=== PATIENT | female | born 2000 | race Caucasian/White ===

== ENCOUNTER 2024-10-14 16:03 | Emergency (ER) | payer OTHER, SELFPAY ==
[2024-10-14 16:06] VITALS: BP 141/85
[2024-10-14 16:24] LABS: % Basophils 0.3 % (0-2); % Eosinophils 0.4 % (0-6); % Immature Granulocytes 0.4 % (0-0.5); % Lymphocytes 5.7 % (20.5-51.1); % Neutrophils 87.2 % (42.2-75.2); Absolute Basophils 0.1 10^3/uL (0-0.2); Absolute Eosinophils 0.1 10^3/uL (0-0.7); Absolute Immature Granulocytes 0.1 10^3/uL (0-0.05); Absolute Lymphocytes 1.1 10^3/uL (1.2-3.4); Absolute Monocytes 1.2 10^3/uL (0.1-0.6); Absolute Neutrophils 17.1 10^3/uL (1.4-6.5); Hematocrit 40.9 % (37.0-47.0); Hemoglobin 13.9 g/dL (12.0-16.0); Mean Corpuscular Hgb 26.3 pg (27.0-31.0); Mean Corpuscular Volume 77.3 fL (81.0-99.0); Mean Platelet Volume 11.1 fL (7.4-10.4); Nucleated Red Blood Cells % 0 %; Platelet Count 278 10^3/uL (130-400); Red Blood Cell Count 5.29 10^6/uL (4.20-5.40); Red Cell Dist. Width 13.3 % (11.5-14.5); White Blood Cell Count 19.6 10^3/uL (4.8-10.8)
[2024-10-14 16:30] LABS: Urine Albumin 2+ (Neg - Trace); Urine Bilirubin Negative (Negative); Urine Character Clear (Clear); Urine Color Yellow; Urine Glucose Negative (Negative); Urine Ketone 1+ (Negative); Urine Leukocyte 1+ (Negative); Urine Nitrite Negative (Negative); Urine Occult Blood 4+ (Negative); Urine Specific Gravity 1.025 (<1.030); Urine Urobilinogen 1+ (Neg - 1+)
[2024-10-14 16:41] LABS: Urine Mucus Few; Urine Squamous Cell >30 /LPF (Few)
[2024-10-14 16:43] LABS: Urine Bacteria Moderate (Negative); Urine Red Blood Cell 60-70 /HPF (0-2)
[2024-10-14 16:44] LABS: HCG, Serum Qualitative Screen Negative
[2024-10-14 16:47] LABS: ALT (SGPT) 21 U/L (0-35); AST (SGOT) 26 U/L (14-36); Albumin 5.3 g/dl (3.5-5.0); Alkaline Phosphatase 75 U/L (38-126); Blood Urea Nitrogen 13 mg/dl (7-17); Calcium 10.3 mg/dl (8.4-10.2); Carbon Dioxide 18 mmol/L (22-30); Chloride 109 mmol/L (98-107); Glucose 97 mg/dl (70-99); Lipase 41 U/L (23-300); Potassium 4.5 mmol/L (3.5-5.1); Sodium 141 mmol/L (135-145); Total Bilirubin 0.6 mg/dl (0.2-1.3); Total Protein 8.6 g/dl (6.3-8.2); eGFR > 60.00
[2024-10-14 18:39] VITALS: BMI 44.1
[2024-10-14] MEDS: NSS 1000 IV (18:43)
[2024-10-14] MEDS: TORADOL 30 MG IV (18:43)
[2024-10-14 18:47] VITALS: BP 138/75
[2024-10-14 19:00] VITALS: BP 105/84
--- NOTE | 2024-10-14 23:19 | ED.GENMED ---
History of Present Illness
General
Chief Complaint: Abdominal Pain
Source: patient
Exam Limitations: none
Time Seen by Provider: 10/14/24 18:26
Nursing documentation reviewed up to this point in time: agreed with
History of Present Illness
History of Present Illness:
Patient to ED with complaint of abdominal pain States she was seen at yesterday for eval of cough x 1 week. Told she had bronchitis and placed on Augmentin. States she is allceric to the clavulanic acid. SHe did not realized the med was
augmentin, thought she was taking amoxicillin. After taking dose she developoed severe abd. pain. Brought to ED by mother for fransisca. Denies fever. reports nausea, vomting. No diarrhea.
Past History
Past History
ED Past Medical History: Hypothyroidism and Psychiatric (anxiety/depression, Bipolar, PTSD)
ED Past Surgical History: Other (Hernia)
Social History
Tobacco: Non-smoker
Alcohol: None
Drug: None
Personal: Single
Living: with family
Employment: Employed
Family History
Family History: Other (Noncontributory)
Review of Systems
Review of Systems
Allergies reviewed?: Yes
All Other Systems: ROS reviewed and negative except as documented in HPI and ROS
Constitutional: Reports no symptoms
EENT: Reports no symptoms
Respiratory: Reports no symptoms
Cardiac: Reports no symptoms
ABD/GI: Reports abdominal pain
: Reports no symptoms
Musculoskeletal: Reports no symptoms
Skin: Reports no symptoms
Neurological: Reports no symptoms
Psychiatric: Reports no symptoms
Phy Exam
General Physical Exam
General Presentation: mild distress
General age: appears stated age
General Skin: warm and dry
General Habitus: normal
Cardiovascular Exam
Cardiovascular Exam: regular rate/rhythm and no edema
Pulmonary Exam
Pulmonary Exam: lungs clear and no respiratory distress
Gastrointestinal Exam
Gastrointestinal Exam: normal bowel sounds, soft, no organomegaly, no pulsatile mass, non distended and no cva tenderness
Palpation: left upper quadrant: Moderate tenderness, left lower quadrant: Mild tenderness, right upper quadrant: Moderate tenderness and right lower quadrant: Mild tenderness
Musculoskeletal Exam
Musculoskeletal Exam: full ROM and neuro vasc intact
Skin Exam
Skin Exam: normal color, warm/dry and no rash
Psychiatric Exam
Psychiatric Exam: normal mood/affect
Course
Orders/Labs/Results
Orders:
Orders
10/14/24 16:08
Test Result ONCE
10/14/24 16:17
Complete Blood Count/With Diff Urgent
Comprehensive Metabolic Panel Urgent
HCG, Serum Qualitative Screen Urgent
Lipase Urgent
10/14/24 16:21
Urinalysis Reflex To Culture Urgent
Date Specimen was Collected: 10/14/24
Time Specimen was Collected: 16:07
Urine Microscopic Reflex Cult Urgent
Urine Culture Urgent
STEVE Source: U
Specimen Description:
Date Specimen was Collected: 10/14/24
Time Specimen was Collected: 16:07
10/14/24 18:34
0.9% Sodium Chloride 1000 ml [Nss] 1,000 ml IV BOLUS
Ketorolac [Toradol] 30 mg IV NOW STA
10/14/24 18:35
CT Abd/pelvis W Iv Cont Urgent
Comment:
Reason For Exam: abdominal pain n/v
CR Chest - 2 Views Urgent
Comment:
Reason For Exam: cough
Abnormal Lab Results
10/14/24 10/14/24
16:17 16:21
WBC 19.6 H 10^3/uL
(4.8-10.8)
MCV 77.3 L fL
(81.0-99.0)
MCH 26.3 L pg
(27.0-31.0)
MPV 11.1 H fL
(7.4-10.4)
Abs Immat Gran (auto) 0.1 H 10^3/uL
(0-0.05)
Absolute Neuts (auto) 17.1 H 10^3/uL
(1.4-6.5)
Absolute Lymphs (auto) 1.1 L 10^3/uL
(1.2-3.4)
Absolute Monos (auto) 1.2 H 10^3/uL
(0.1-0.6)
Neutrophils % 87.2 H %
(42.2-75.2)
Lymphocytes % 5.7 L %
(20.5-51.1)
Chloride 109 H mmol/L
(98-107)
Carbon Dioxide 18 L mmol/L
(22-30)
Calcium 10.3 H mg/dl
(8.4-10.2)
Total Protein 8.6 H g/dl
(6.3-8.2)
Albumin 5.3 H g/dl
(3.5-5.0)
Urine Ketones 1+ A
(Negative)
Ur Occult Blood Reflex 4+ A
(Negative)
Leukocyte Esterase Rfl 1+ A
(Negative)
Urine RBC 60-70 A /HPF
(0-2)
Urine Bacteria (Reflex) Moderate A
(Negative)
Urine Albumin (Reflex) 2+ A
(Neg - Trace)
10/14/24 16:17
10/14/24 16:17
Vital Signs
Initial and Last Documented VS:
Initial Vital Signs
Temp Pulse Resp BP Pulse Ox
98.7 F 102 16 141/85 98
10/14/24 16:06 10/14/24 16:06 10/14/24 16:06 10/14/24 16:06 10/14/24 16:06
Last Documented Vital Signs
Temp Pulse Resp BP Pulse Ox
98.7 F 102 16 105/84 97
10/14/24 16:06 10/14/24 16:06 10/14/24 16:06 10/14/24 19:00 10/14/24 19:00
*Radiology
Radiology exam reviewed: radiology read reviewed
*Pulse Oximetry
Patient hypoxic: no
*Critical Care Note
Total Time (30-74mins, 75-104mins- exclusive of procedures): Not Applicable
Update Note
Update Note:
Patient to ED with complaint of abdominal pain, n/v after taking augmentin today. SHe has an allergy to clavulanic acid. Labs reviewed. WBC [address] of abdomen completed. Mild stable hepatomegaly otherwise normal. Improved iwth IVF and
zofran. Will discharge home. She will stop antitiotic. LCTA, CXR neg for pneumonia. no antibiotic recommended. WIll follow up withPCP on Thursday Given isntructions n s/s to return to ED and she is agreeable to pln.
ED Attending Note
-
Portions of this chart may have been created with voice recognition software.� Occasional wrong word or��sound alike� substitutions may have occurred due to the inherent limitations of voice recognition software.
Discharge Plan
Departure
Patient Disposition: Home (Routine Discharge)
Date of Disposition: 10/14/24
Time of Disposition: 20:51
Patient with high blood pressure during this ER visit?: No
Condition: Good
Covid-19: Not Applicable
Discharge Problem:
Abdominal pain
Instructions: Clear Liquid Diet, Abdominal Pain
Prescriptions:
No Action
prazosin 1 MG capsule
1 mg PO HS
levothyroxine [Synthroid] 50 MCG tablet
50 mcg PO HS
lamotrigine [Lamictal] 200 MG tablet
200 mg PO HS
hydroxyzine HCl 50 MG tablet
50 mg PO DAILYPRN PRN (Reason: anxiety)
propranolol 20 MG tablet
20 mg PO DAILYPRN PRN (Reason: anxiety)
Balcoltra 1 EACH tablet
1 ea PO DAILY
azithromycin 500 mg tablet
500 mg PO DAILY 2 Days Qty: 2 0RF
pantoprazole [Protonix] 40 mg tablet,delayed release (DR/EC)
40 mg PO DAILY Qty: 10 0RF
sucralfate [Carafate] 1 gram tablet
1 g PO ACHS Qty: 40 0RF
Rx Instructions:
30 min-1 hour before meals and bedtime
Referrals:
Kathy Holly CRNP [Family Provider, Family Practice] - Follow up in 2-3 days
Activity Restrictions/Additional Instructions:
Return to the emergency department immediately for any changes in/worsening of your symptoms.
Interventions
Interventions:
*Risk Screen - Suicide Last Done: 10/14/24 16:07
*General Assessment Last Done: 10/14/24 18:36
*Neglect/Abuse Screening Last Done: 10/14/24 16:07
*ED- Fall Risk Assessment Last Done: 10/14/24 18:36
*ED COVID-19 Vaccine History Last Done: 10/14/24 18:36
*Nursing Disposition Last Done: 10/14/24 21:22
II-Psedpo-Qmyofxrkbo Assessment Last Done: 10/14/24 18:36
Discharge Date and Time
Discharge Date/Time: 10/14/24 21:22
Print Language: ARABIC
== END 2024-10-14 21:22 | disposition home or self-care (01) ==
LOC: EMR 16:03
PROVIDERS: EMERGENCY PHYSICIAN Emergency Medicine; FAMILY PHYSICIAN Nurse Practitioner Family
DX: R10.9 Unspecified abdominal pain (principal)
CPT/HCPCS: 99285; 96374; 96361; 71046; 74177; 80053; 81003; 81015; 83690; 84703; 85025; 87086; Q9967